=== PATIENT | female | born 1985 | race Caucasian/White ===

== ENCOUNTER 2017-02-07 21:28 | Emergency (ER) | payer SELFPAY ==
[2017-02-07 22:03] LABS: Basophils % (Auto) 0.7 % (0.0-1.8); Eosinophils % (Auto) 5.8 % (0.0-4.3); Hematocrit 36.7 % (30.3-42.9); Hemoglobin 12.9 gm/dl (10.1-14.3); Mean Corpuscular HGB Conc 35 % (30-34); Mean Corpuscular Hemoglobin 31 pg (28-32); Mean Corpuscular Volume 87 fl (79-97); Platelet Count 231 K/mm3 (140-440); Red Blood Count 4.22 M/mm3 (3.65-5.03); Red Cell Distribution Width 14.1 % (13.2-15.2); White Blood Count 9.5 K/mm3 (4.5-11.0)
--- NOTE | 2017-02-07 23:03 | Ultrasound Report ---
FINAL REPORT PROCEDURE: Obstetrical ultrasound. TECHNIQUE: Real-time transabdominal sonography of the uterus, placenta, amniotic fluid, adnexa, and fetus was performed with image documentation. Measurements were obtained to determine age/size. M-mode Doppler was used to document heartbeat. CPT 52355 HISTORY: , vaginal bleeding. COMPARISON: No prior studies are available for comparison. FINDINGS: The uterus measures 11.3 centimeters x 7.4 centimeters x 7.3 centimeters. The myometrium appears uniform. There is an intrauterine gestational sac. This will be better evaluated by transvaginal imaging. Neither ovary is identified. IMPRESSION: Intrauterine gestational sac.
--- NOTE | 2017-02-07 23:05 | Ultrasound Report ---
FINAL REPORT PROCEDURE: Transvaginal obstetrical ultrasound. TECHNIQUE: Real-time transvaginal sonography of the uterus, placenta, amniotic fluid, adnexa, and fetus was performed with image documentation. Measurements were obtained to determine age/size. M-mode Doppler was used to document heartbeat. CPT 90734 HISTORY: , vaginal bleeding. COMPARISON: No prior studies are available for comparison. FINDINGS: The uterus appears normal. There is an intrauterine gestational sac. A pole is visible. The crown-rump length measurement is 1.87 centimeters. This indicates a menstrual age of 8 weeks 3 days. There is no heart rate detected. Both ovaries appear normal in size and have normal color flow signal. IMPRESSION: Intrauterine demise at 8 weeks 3 days.
[2017-02-08 03:46] LABS: Bacteria,Urine 1+ /HPF (Negative); Bilirubin,Urine NEG (Negative); Blood,Urine LG (Negative); Ketones,Urine NEG (Negative); Leukocyte Esterase,Urine NEG (Negative); Nitrite,Urine NEG (Negative); Protein,Urine <15 mg/dL mg/dL (Negative); Urobilinogen,Urine < 2.0 mg/dL (<2.0)
--- NOTE | 2017-02-08 04:24 | Emergency Department Report ---
HPI - General Chief Complaint: Vaginal Bleeding Time Seen by Provider: 02/08/17 02:41 - HPI HPI: This is a 31-year-old female presents to the emergency department with a complaint of some lower abdominal and/or pelvic cramping and some mild vaginal bleeding for the past 1-2 days. The patient states that she is at about 12 weeks. With this the patient would be with 3 live children and one previous miscarriage. She denies any fever, dysuria, back pain, nausea, vomiting, chest pain or shortness of breath. She has an [facility] [employer] [facility] through a clinic in [place] and has seen them and had a confirmed positive urine test there but has not yet had a ultrasound. She has an appointment to see them in the morning. She has not taken anything for her symptoms prior presentation. ED Past Medical Hx - Past Medical History Previous Medical History?: No Additional medical history: gestational diabetes with 1st - Surgical History Hx Appendectomy: Yes - Social History Smoking Status: Never Smoker Substance Use Type: None - Medications Home Medications: Home Medications Medication Instructions Recorded Confirmed Last Taken Type HYDROcodone/ACETAMINOPHEN [[place] 1 each PO Q6H PRN #8 tablet 02/08/17 Unknown Rx 5-325 Tablet] ED Review of Systems ROS: Stated complaint: SPOTTING - PREG Other details as noted in HPI Comment: All other systems reviewed and negative Constitutional: denies: chills, fever Eyes: denies: eye pain, eye discharge, vision change ENT: denies: ear pain, throat pain Respiratory: denies: cough, shortness of breath, wheezing Cardiovascular: denies: chest pain, palpitations Gastrointestinal: abdominal pain (low abd pain and/or pelvic pain). denies: nausea, vomiting Genitourinary: other (vaginal bleeding). denies: dysuria Musculoskeletal: denies: back pain, joint swelling, arthralgia Skin: denies: rash, lesions Neurological: denies: headache, weakness, paresthesias Physical Exam - Physical Exam Vital Signs: Vital Signs 02/07/17 02/07/17 02/08/17 21:30 21:37 02:53 Temperature 98.0 F 98 F 98.7 F Pulse Rate 83 79 72 Respiratory 18 18 16 Rate Blood Pressure 121/73 121/73 Blood Pressure 109/68 [Right] O2 Sat by Pulse 98 98 100 Oximetry Physical Exam: GENERAL: The patient is well-developed well-nourished. HENT: Normocephalic. Atraumatic. Patient has moist mucous membranes. EYES: Extraocular motions are intact. Pupils equal reactive to light bilaterally. NECK: Supple. Trachea is midline. CHEST/LUNGS: Clear to auscultation. There is no respiratory distress noted. HEART/CARDIOVASCULAR: Regular. There is no tachycardia. There is no gallop rub or murmur. ABDOMEN: Abdomen is soft, nontender. Patient has normal bowel sounds. There is no abdominal distention. SKIN: Skin is warm and dry. NEURO: The patient is awake, alert, and oriented. The patient is cooperative. The patient has no focal neurologic deficits. The patient has normal speech. MUSCULOSKELETAL: There is no tenderness or deformity. There is no limitation range of motion. There is no evidence of acute injury. ED Course Vital Signs 02/07/17 02/07/17 02/08/17 21:30 21:37 02:53 Temperature 98.0 F 98 F 98.7 F Pulse Rate 83 79 72 Respiratory 18 18 16 Rate Blood Pressure 121/73 121/73 Blood Pressure 109/68 [Right] O2 Sat by Pulse 98 98 100 Oximetry - Consultations Consultation #1: I spoke to the [employer]PER[employer] chemist instrumentation, Dr. Ruano, who listened to the case presentation including the ultrasound findings of concern for demise and she feels that the patient is safe for discharge to follow up with her [employer] UT[employer] OPERATOR later today during her scheduled appointment. 02/08/17 04:23 ED Medical Decision Making - Lab Data Result diagrams: 02/07/17 21:42 - Radiology Data Radiology results: report reviewed PROCEDURE: Transvaginal obstetrical ultrasound. TECHNIQUE: Real-time transvaginal sonography of the uterus, placenta, amniotic fluid, adnexa, and fetus was performed with image documentation. Measurements were obtained to determine age/size. M-mode Doppler was used to document heartbeat. CPT 10021 HISTORY: , vaginal bleeding. COMPARISON: No prior studies are available for comparison. FINDINGS: The uterus appears normal. There is an intrauterine gestational sac. A pole is visible. The crown-rump length measurement is 1.87 centimeters. This indicates a menstrual age of 8 weeks 3 days. There is no heart rate detected. Both ovaries appear normal in size and have normal color flow signal. IMPRESSION: Intrauterine demise at 8 weeks 3 days. Transcribed By: MRM Dictated By: SHAMAR CORREA MD Electronically Authenticated By: SHAMAR CORREA MD Signed Date/Time: 02/07/171901 - Medical Decision Making 31-year-old female presents with some intermittent lower abdominal and pelvic discomfort and some mild vaginal bleeding while . Her beta hCG is about 4500. Obstetric ultrasound shows intrauterine demise. I spoke with the [employer] UTILITY OPERATOR who agrees that this sounds consistent with intrauterine demise and that the patient appears safe for discharge to follow-up with her OB/ [facility] [employer] during her scheduled appointment later today. Patient says that she does not have any significant abdominal or pelvic pain right now in the amount of vaginal bleeding is very mild. Type and screen was done and the patient is O+ and does not require RhoGAM shot. She will return to the ER with any worsening of her symptoms or any acute distress. Vital signs stable throughout her ED course. [employer] Senior Project Manager Rene assisted with translation. - Differential Diagnosis , threatened miscarriage, spontaneous miscarriage, demise, f Critical Care Time: No Critical care attestation.: If time is entered above; I have spent that time in minutes in the direct care of this critically ill patient, excluding procedure time. ED Disposition Clinical Impression: demise Disposition: DC-01 TO HOME OR SELFCARE Is pt being admited?: No Condition: Stable Instructions: Intrauterine Demise (ED) Additional Instructions: Please follow-up with your [employer] UTILITY OPERATOR later today as previously scheduled. Return to the emergency Department with any worsening of your symptoms or any acute distress. You have been prescribed a medication that is sedating and therefore should not be taken prior to driving, working, and responsible for children and in no way should be mixed with alcohol of any quantity. Prescriptions: HYDROcodone/ACETAMINOPHEN [[place] 5-325 Tablet] 1 each PO Q6H PRN #8 tablet PRN Reason: Pain Referrals: PRIMARY CARE, [Primary Care Provider] - [facility] Time of Disposition: 04:25 Print Language: UKRAINIAN
[2017-02-08 04:51] VITALS: BP 114/74
== END 2017-02-08 04:51 | disposition home or self-care (01) ==
LOC: ED 21:28
DX: O36.4XX0 Maternal care for intrauterine death, not applicable or unspecified (principal); Z98.890 Other specified postprocedural states
CPT/HCPCS: 36415; 76801; 76802; 76817; 81001; 84702; 85025; 86850; 86900; 86901

== ENCOUNTER 2020-11-05 16:28 | Emergency (ER) | payer OTHER ==
[2020-11-05 18:02] VITALS: BP 135/82
--- NOTE | 2020-11-05 18:26 | Event Note ---
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 Further treatment and workup at subsequent clinical providers discretion. Patient/guardian urged not to elope from the ED as their condition may be serious if not clinically assessed and managed. Initial orders include: labs, urine, us
[2020-11-05 19:00] LABS: Bilirubin,Urine NEG (Negative); Blood,Urine LG (Negative); Color,Urine Yellow (Yellow); Mucus,Urine FEW /HPF; Protein,Urine <15 mg/dL mg/dL (Negative); Urobilinogen,Urine < 2.0 mg/dL (<2.0)
[2020-11-05 19:29] LABS: Basophils % (Auto) 0.7 % (0.0-1.8); Eosinophils # (Auto) 0.4 K/mm3 (0.0-0.4); Eosinophils % (Auto) 5.9 % (0.0-4.3); Hematocrit 35.4 % (30.3-42.9); Hemoglobin 11.9 gm/dl (10.1-14.3); Lymphocytes # (Auto) 1.8 K/mm3 (1.2-5.4); Lymphocytes % (Auto) 28.6 % (13.4-35.0); Mean Corpuscular HGB Conc 34 % (30-34); Mean Corpuscular Volume 88 fl (79-97); Monocytes # (Auto) 0.5 K/mm3 (0.0-0.8); Monocytes % (Auto) 7.8 % (0.0-7.3); Platelet Count 259 K/mm3 (140-440); Red Blood Count 4.03 M/mm3 (3.65-5.03); Red Cell Distribution Width 14.7 % (13.2-15.2)
[2020-11-05 19:40] LABS: Alanine Aminotransferase 21 units/L (7-56); Albumin 3.9 g/dL (3.9-5); Blood Urea Nitrogen 10 mg/dL (7-17); Calcium 8.7 mg/dL (8.4-10.2); Hemolysis Index 2
[2020-11-05 19:44] LABS: BUN/Creatinine Ratio 17
--- NOTE | 2020-11-05 21:02 | Ultrasound Report ---
ULTRASOUND OB LESS THAN 14 WEEKS INDICATION / CLINICAL INFORMATION: dx with demise, took pill , abd pain. Serum hCG 832. TECHNIQUE: Transabdominal. Duplex Color Doppler used: Yes. COMPARISON: None available FINDINGS: UTERUS: Uterus is normal measuring 10.8 x 5.7 x 6.9 cm. Endometrial thickness is 11 mm. No gestationa l sac is seen in the uterus. RIGHT ADNEXA: No significant ovarian cyst or mass. Normal color Doppler blood flow. Normal measuring 3.0 x 1.9 x 2.6 cm LEFT ADNEXA: No significant ovarian cyst or mass. Normal color Doppler blood flow. Normal measuring 2 .6 x 1.5 x 1.7 cm URINARY BLADDER: No significant abnormality. FREE FLUID: None. ADDITIONAL FINDINGS: None. IMPRESSION: 1. No significant abnormality. No intrauterine gestational sac seen or suspicious adnexal mass. Signer Name: Randy Hay MD Signed: 11/05/2020 8:57 PM Workstation Name: [id number]
[2020-11-05] MEDS ORDERED: IBUPROFEN 600 MG TAB PO ONE (21:27)
[2020-11-05] MEDS ORDERED: oxyCODONE /ACETAMINOPHEN 5-325MG TAB PO ONE (21:27)
--- NOTE | 2020-11-05 21:34 | Emergency Department Report ---
ED General Adult HPI - General Chief complaint: Abdominal Pain Stated complaint: Lower abdominal pain PUI?: No Time Seen by Provider: 11/05/20 18:23 Source: patient, RN notes reviewed Mode of arrival: Ambulatory Limitations: No Limitations - History of Present Illness Initial comments: The patient was evaluated in the emergency department for symptoms described in the history of present illness. He/she was evaluated in the context of the global COVID-19 pandemic, which necessitated consideration that the patient might be at risk for infection with the virus that causes COVID-19. Institutional protocols and algorithms that pertain to the evaluation of patients at risk for COVID-19 are in a state of rapid change based on information released by regulatory bodies including the CDC and federal and state organizations. These policies and algorithms were followed during the patient's care in the emergency department. Please note that these policies, procedures and recommendations changed on a rapid basis. Primary care doctor/[facility]: Dr. Grullon The patient is a 35-year-old female. Last menstrual period August 30, 7, para 3, ab 3, with a distant history of appendectomy, who presents to the ER with suprapubic and left lower quadrant pain. She reports having had an outpatient ultrasound which showed a gestational sac, and her primary care doctor prescribed misoprostol, as well as ibuprofen. She took the medications, and has been having lower abdominal pain with associated with scant vaginal bleeding. Denies headache, neck pain, chest pain, upper abdominal pain, vomiting, diarrhea, and dysuria. Abdominal pain is sharp, increases with palpation and decreases with rest. Does not radiate anywhere. -: Gradual, days(s) Location: abdomen Quality: aching Consistency: intermittent Improves with: rest Worsens with: movement - Related Data Previous Rx's Medication Instructions Recorded Last Taken Type oxyCODONE /ACETAMINOPHEN [Percocet 1 tab PO Q4HR PRN #12 tab 11/05/20 Unknown Rx 5/325] Allergies Allergy/AdvReac Type Severity Reaction Status Date / Time Penicillins Allergy Rash Verified 02/07/17 21:37 ED Review of Systems ROS: Stated complaint: AB PAIN Other details as noted in HPI Constitutional: denies: fever Eyes: denies: eye discharge ENT: denies: epistaxis Respiratory: denies: cough Cardiovascular: denies: chest pain Gastrointestinal: abdominal pain. denies: nausea, diarrhea Genitourinary: denies: as per HPI, dysuria Musculoskeletal: denies: back pain Neurological: denies: weakness Hematological/Lymphatic: denies: easy bleeding ED Past Medical Hx - Past Medical History Previous Medical History?: No Additional medical history: gestational diabetes with 1st - Surgical History Past Surgical History?: Yes Hx Appendectomy: Yes - Social History Smoking Status: Never Smoker Substance Use Type: None - Medications Home Medications: Home Medications Medication Instructions Recorded Confirmed Last Taken Type oxyCODONE /ACETAMINOPHEN [Percocet 1 tab PO Q4HR PRN #12 tab 11/05/20 Unknown Rx 5/325] ED Physical Exam - General Limitations: No Limitations General appearance: alert, in no apparent distress - Head Head exam: Present: atraumatic, normocephalic - Eye Eye exam: Present: normal appearance, EOMI. Absent: nystagmus - ENT ENT exam: Present: normal exam, normal orophraynx, mucous membranes moist, normal external ear exam - Neck Neck exam: Present: normal inspection, full ROM. Absent: tenderness, menin gismus - Respiratory Respiratory exam: Present: normal lung sounds bilaterally. Absent: respiratory distress, wheezes, rales, rhonchi, stridor, decreased breath sounds - Cardiovascular Cardiovascular Exam: Present: regular rate, normal rhythm, normal heart sounds. Absent: bradycardia, tachycardia, irregular rhythm, systolic murmur, diastolic murmur, rubs, gallop - GI/Abdominal GI/Abdominal exam: Present: soft, tenderness, other (There is suprapubic and left lower quadrant abdominal tenderness.). Absent: distended, guarding, rebound, rigid, pulsatile mass - Extremities Exam Extremities exam: Present: normal inspection, full ROM, other (2+ pulses noted in the bilateral upper and lower extremities. There is no palpable cord. negative Homans sign. Muscular compartments are soft. The pelvis is stable.). Absent: pedal edema, calf tenderness - Back Exam Back exam: Present: normal inspection, full ROM. Absent: tenderness, CVA tenderness (R), CVA tenderness (L), paraspinal tenderness, vertebral tenderness - Neurological Exam Neurological exam: Present: alert, oriented X3, normal gait, other (No facial droop. Tongue midline. Extraocular movements intact bilaterally. Facial sensation intact to light touch in V1, V2, V3 distribution bilaterally. 5 and a 5 strength in 4 extremities. Sensation intact to light touch in 4 extremities.). Absent: motor sensory deficit - Psychiatric Psychiatric exam: Present: normal affect, normal mood - Skin Skin exam: Present: warm, dry, intact, normal color. Absent: rash ED Course Vital Signs 11/05/20 18:00 Temperature 98.4 F Pulse Rate 65 Respiratory 18 Rate Blood Pressure 135/82 O2 Sat by Pulse 100 Oximetry ED Medical Decision Making - Lab Data Result diagrams: 11/05/20 18:38 11/05/20 18:38 Vital Signs 11/05/20 18:00 Temperature 98.4 F Pulse Rate 65 Respiratory 18 Rate Blood Pressure 135/82 O2 Sat by Pulse 100 Oximetry Lab Results 11/05/20 11/05/20 11/05/20 Range/Units 18:38 18:38 18:38 WBC 6.1 (4.5-11.0) K/mm3 RBC 4.03 (3.65-5.03) M/mm3 Hgb 11.9 (10.1-14.3) gm/dl Hct 35.4 (30.3-42.9) % MCV 88 (79-97) fl MCH 30 (28-32) pg MCHC 34 (30-34) % RDW 14.7 (13.2-15.2) % Plt Count 259 (140-440) K/mm3 Lymph % (Auto) 28.6 (13.4-35.0) % [place] % (Auto) 7.8 H (0.0-7.3) % Eos % (Auto) 5.9 H (0.0-4.3) % Baso % (Auto) 0.7 (0.0-1.8) % Lymph # (Auto) 1.8 (1.2-5.4) K/mm3 [place] # (Auto) 0.5 (0.0-0.8) K/mm3 Eos # (Auto) 0.4 (0.0-0.4) K/mm3 Baso # (Auto) 0.0 (0.0-0.1) K/mm3 Seg Neutrophils % 57.0 (40.0-70.0) % Seg Neutrophils # 3.5 (1.8-7.7) K/mm3 Sodium 137 (137-145) mmol/L Potassium 4.1 (3.6-5.0) mmol/L Chloride 102.1 (98-107) mmol/L Carbon Dioxide 24 (22-30) mmol/L Anion Gap 15 mmol/L BUN 10 (7-17) mg/dL Creatinine 0.6 (0.6-1.2) mg/dL Estimated GFR > 60 ml/min BUN/Creatinine Ratio 17 % Glucose 81 (65-100) mg/dL Calcium 8.7 (8.4-10.2) mg/dL Total Bilirubin 0.60 (0.1-1.2) mg/dL AST 20 (5-40) units/L ALT 21 (7-56) units/L Alkaline Phosphatase 85 (35-129) units/L Total Protein 6.7 (6.3-8.2) g/dL Albumin 3.9 (3.9-5) g/dL Albumin/Globulin Ratio 1.4 % Lipase 26 (13-60) units/L HCG, Quant 832.2 H (0-4) mIU/mL Urine Color (Yellow) Urine Turbidity (Clear) Urine pH (5.0-7.0) Ur Specific [employer] (1.003-1.030) Urine Protein (Negative) mg/dL Urine Glucose (UA) (Negative) mg/dL Urine Ketones (Negative) mg/dL Urine Blood (Negative) Urine Nitrite (Negative) Urine Bilirubin (Negative) Urine Urobilinogen (<2.0) mg/dL Ur Leukocyte Esterase (Negative) Urine WBC (Auto) (0.0-6.0) /HPF Urine RBC (Auto) (0.0-6.0) /HPF U Epithel Cells (Auto) (0-13.0) /HPF Urine Mucus /HPF Blood Type 11/05/20 11/05/20 Range/Units 18:38 Unknown WBC (4.5-11.0) K/mm3 RBC (3.65-5.03) M/mm3 Hgb (10.1-14.3) gm/dl Hct (30.3-42.9) % MCV (79-97) fl MCH (28-32) pg MCHC (30-34) % RDW (13.2-15.2) % Plt Count (140-440) K/mm3 Lymph % (Auto) (13.4-35.0) % [place] % (Auto) (0.0-7.3) % Eos % (Auto) (0.0-4.3) % Baso % (Auto) (0.0-1.8) % Lymph # (Auto) (1.2-5.4) K/mm3 [place] # (Auto) (0.0-0.8) K/mm3 Eos # (Auto) (0.0-0.4) K/mm3 Baso # (Auto) (0.0-0.1) K/mm3 Seg Neutrophils % (40.0-70.0) % Seg Neutrophils # (1.8-7.7) K/mm3 Sodium (137-145) mmol/L Potassium (3.6-5.0) mmol/L Chloride (98-107) mmol/L Carbon Dioxide (22-30) mmol/L Anion Gap mmol/L BUN (7-17) mg/dL Creatinine (0.6-1.2) mg/dL Estimated GFR ml/min BUN/Creatinine Ratio % Glucose (65-100) mg/dL Calcium (8.4-10.2) mg/dL Total Bilirubin (0.1-1.2) mg/dL AST (5-40) units/L ALT (7-56) units/L Alkaline Phosphatase (35-129) units/L Total Protein (6.3-8.2) g/dL Albumin (3.9-5) g/dL Albumin/Globulin Ratio % Lipase (13-60) units/L HCG, Quant (0-4) mIU/mL Urine Color Yellow (Yellow) Urine Turbidity Clear (Clear) Urine pH 5.0 (5.0-7.0) Ur Specific [employer] 1.014 (1.003-1.030) Urine Protein <15 mg/dl (Negative) mg/dL Urine Glucose (UA) Neg (Negative) mg/dL Urine Ketones Neg (Negative) mg/dL Urine Blood Lg (Negative) Urine Nitrite Neg (Negative) Urine Bilirubin Neg (Negative) Urine Urobilinogen < 2.0 (<2.0) mg/dL Ur Leukocyte Esterase Neg (Negative) Urine WBC (Auto) 1.0 (0.0-6.0) /HPF Urine RBC (Auto) 16.0 (0.0-6.0) /HPF U Epithel Cells (Auto) < 1.0 (0-13.0) /HPF Urine Mucus Few /HPF Blood Type O POSITIVE - Radiology Data Radiology results: report reviewed, image reviewed [facility] [address] [id number] Ultrasound Report Signed Patient: LAURA HERNANDES MR #: [id number] : 1985 Acct:[id number] Age/Sex: 35 / F ADM Date: 11/05/20 Loc: ED Attending Dr: Ordering Physician: ROMELIA BRANHAM Date of Service: 11/05/20 Procedure(s): US OB <= 14 weeks fetus Accession Number(s): [id number] cc: ROMELIA BRANHAM ULTRASOUND OB LESS THAN 14 WEEKS INDICATION / CLINICAL INFORMATION: dx with demise, took pill , abd pain. Serum hCG 832. TECHNIQUE: Transabdominal. Duplex Color Doppler used: Yes. COMPARISON: None available FINDINGS: UTERUS: Uterus is normal measuring 10.8 x 5.7 x 6.9 cm. Endometrial thickness is 11 mm. No gestational sac is seen in the uterus. RIGHT ADNEXA: No significant ovarian cyst or mass. Normal color Doppler blood flow. Normal measuring 3.0 x 1.9 x 2.6 cm LEFT ADNEXA: No significant ovarian cyst or mass. Normal color Doppler blood flow. Normal measuring 2.6 x 1.5 x 1.7 cm URINARY BLADDER: No significant abnormality. FREE FLUID: None. ADDITIONAL FINDINGS: None. IMPRESSION: 1. No significant abnormality. No intrauterine gestational sac seen or suspicious adnexal mass. Signer Name: Randy aHy MD Signed: 11/05/2020 8:57 PM Workstation Name: [id number] Transcribed By: DB Dictated By: RANDY HAY MD Electronically Authenticated By: RANDY HAY MD Signed Date/Time: 11/05/202056 DD/ 52 - Medical Decision Making Differential diagnosis, including but not limited to: Retained products of conception, , ectopic , dysfunctional uterine bleeding, misoprostol side effect Assessment and plan: 35-year-old female, who was afebrile, with reassuring vital signs, with minimally tender left lower quadrant and suprapubic abdomen, Rh+, hemoglobin, hematocrit appropriate at this time, resting comfortably on stretcher and in chair, with ultrasound which does not demonstrate evidence of ectopic , bleeding, cyst, torsion, free fluid, retained products of conception, or any other emergent condition. Patient educated appropriately. Patient is to follow-up in 48 hours for repeat physical exam, quant hCG, and ultrasound to assess for appropriately diminishing quant hCG. Have discussed this with the patient. She has articulated understanding. Continue misoprostol , and ibuprofen, and Percocet for breakthrough pain. Return precautions are reviewed. Patient has articulated understanding Critical care attestation.: If time is entered above; I have spent that time in minutes in the direct care of this critically ill patient, excluding procedure time. ED Disposition Clinical Impression: Lower abdominal pain, Positive test Disposition: HOME / SELF CARE / HOMELESS Is pt being admited?: No Does the pt Need Aspirin: No Condition: Good Instructions: Abdominal Pain (ED), Ectopic , Demise Additional Instructions: Please continue ibuprofen and misoprostol. Take the Percocet as needed for breakthrough pain. Patient is most likely experiencing history of continuous demise and expulsion of contents, likely secondary to misoprostol. Pelvic ultrasound today did not demonstrate intrauterine preg kevin, or evidence of ectopic . Quantitative hCG/ hormone was 832.2. Patient needs to follow-up in 2 days for repeat physical exam, laboratory studies and pelvic ultrasound to make certain that quantitative hCG/ hormone level is appropriately decreasing. It is important to very closely follow-up to make certain that the numbers going down, and to make certain that the patient does not have retained products of conception, or evidence of ectopic . The patient may follow-up with her private [facility] physician, or follow-up with any of the listed [facility] physicians. Alternatively, patient may return to this emergency room for the repeat testing. Rest, avoid heavy lifting and strenuous physical activity, and avoid sexual activity. Please return to the emergency room right away with new pain, worsened pain, migration of pain, projectile vomiting, change in mental status, confusion, inability to tolerate liquid feeds, bleeding more than 2 pads soaked per hour, loss of consciousness, or any new, worsened or different symptoms not present on the initial emergency room evaluation. Contine con ibuprofeno y misoprostol. [place] Percocet segn sea necesario para el dolor irruptivo. Es muy probable que la paciente experimente antecedentes de muerte continua y expulsin del contenido del embarazo, probablemente secundaria al misoprostol. La ecografa plvica actual no demostr embarazo intrauterino ni evidencia de embarazo ectpico. La hormona del embarazo / hCG cuantitativa fue de 832,2. El paciente debe realizar un seguimiento en 2 jung para repetir el examen fsico, los estudios de laboratorio y la ecografa plvica para asegurarse de que el nivel cuantitativo de hCG / hormona del embarazo est disminuyendo adecuadamente. Es importante realizar un seguimiento muy detenido para asegurarse de que los nmeros disminuyan y para asegurarse de que la paciente no tenga productos retenidos de la concepcin o evidencia de embarazo ectpico. El paciente puede realizar un seguimiento con emmanuel mdico obstetra / gineclogo privado o con cualquiera de los obstetras / gineclogos enumerados. Alternativamente, el paciente puede regresar a esta bharat de emergencias para repetir la prueba. Descanse, evite levantar objetos pesados ??y la actividad fsica extenuante y evite la actividad sexual. Regrese a la bharat de emergencias de inmediato con un nuevo dolor, empeoramiento del dolor, migracin del dolor, vmitos en proyectil, cambio en el estado mental, confusin, incapacidad para tolerar la alimentacin lquida, sangrado de ms de 2 toallas s anitarias empapadas por hora, prdida del conocimiento o cualquier otro problema. sntomas nuevos, empeorados o diferentes no presentes en la evaluacin inicial de la bharat de emergencias. Referrals: [facility] [Provider Group] - 3-5 Days [facility] [Provider Group] - 3-5 Days [facility] [Provider Group] - 3-5 Days Forms: Work/School Release Form(ED) Print Language: [id number]
== END 2020-11-05 22:05 | disposition home or self-care (01) ==
LOC: ED 16:28
DX: R10.32 Left lower quadrant pain (principal); Z90.49 Acquired absence of other specified parts of digestive tract; Z32.01 Encounter for pregnancy test, result positive; Z88.0 Allergy status to penicillin; Z79.899 Other long term (current) drug therapy
CPT/HCPCS: 36415; 76801; 80053; 81001; 83690; 84702; 85025; 86900; 86901; 99284